=== PATIENT | female | born 2000 | race Two or more races ===

== ENCOUNTER 2022-03-04 11:56 | Emergency (ER) | payer MEDICAID, OTHER ==
[~2022-03-04] VITALS: Ht 170.2 cm; Wt 100.0 kg
[2022-03-04 12:16] VITALS: BP 142/92
[2022-03-04] MEDS ORDERED: cefTRIAXone SOD 1,000 MG VL IM ONE (12:45)
[2022-03-04] MEDS ORDERED: methylPREDNISolone SOD SUCC 125 MG/2 ML VL IM ONE (12:45)
[2022-03-04] MEDS ORDERED: IBUP800T27 PO (13:18)
[2022-03-04] MEDS ORDERED: AZIT500T66 PO (13:18)
[2022-03-04] MEDS ORDERED: ALBU108A5 IN (13:18)
== END 2022-03-04 13:23 | disposition home or self-care (01) ==
LOC: ER 11:56
DX: J03.90 Acute tonsillitis, unspecified (principal); J45.909 Unspecified asthma, uncomplicated; Z76.0 Encounter for issue of repeat prescription
CPT/HCPCS: 71045; 96372; 99284; J0696; J2930

== ENCOUNTER 2022-04-23 14:06 | Emergency (ER) | payer MEDICAID, OTHER ==
[~2022-04-23] VITALS: Ht 170.2 cm; Wt 106.7 kg
[~2022-04-23 14:06] MED LIST: ALBU108A5 IN; AZIT500T66 PO; IBUP800T27 PO
[2022-04-23] MEDS ORDERED: IBUPROFEN 800 MG TAB PO ONE (15:30)
[2022-04-23] MEDS ORDERED: METH500T22 PO (15:47)
[2022-04-23] MEDS ORDERED: IBUP800T27 PO (15:47)
[2022-04-23 16:30] VITALS: BP 126/77
== END 2022-04-23 16:31 | disposition home or self-care (01) ==
LOC: ER 14:06
DX: S16.1XXA Strain of muscle, fascia and tendon at neck level, initial encounter (principal); J45.909 Unspecified asthma, uncomplicated; F12.90 Cannabis use, unspecified, uncomplicated; Z79.899 Other long term (current) drug therapy; V49.9XXA Car occupant (driver) (passenger) injured in unspecified traffic accident, initial encounter; Y93.89 Activity, other specified; Y92.488 Other paved roadways as the place of occurrence of the external cause; Y99.8 Other external cause status
CPT/HCPCS: 70450; 72040

== ENCOUNTER 2023-12-05 13:59 | Emergency (ER) | payer MEDICAID, OTHER ==
[~2023-12-05] VITALS: Ht 170.2 cm; Wt 111.6 kg
[~2023-12-05 13:59] MED LIST changes: +IBUP-1456 PO; -IBUP800T27 PO; +METH-1181 PO
[2023-12-05 15:15] VITALS: PULSE 80; RESP 18; O2SAT 97
[2023-12-05 15:18] VITALS: BP 114/78; PULSE 87; RESP 16; TEMP 97.9; O2SAT 97
[2023-12-05] MEDS: MECLIZINE HCL 25 MG TAB PO ONE (15:20)
[2023-12-05 15:29] LABS: Urine Bacteria None Seen /hpf (None Seen)
[2023-12-05 15:43] LABS: Urine Blood Negative /uL (Negative); Urine Clarity Clear (Clear); Urine Color Light-Yellow (Yellow); Urine Mucus FEW (None Seen); Urine Protein, UAD Negative (Negative); Urine Specific Gravity 1.017 (1.001-1.035); Urine Urobilinogen Normal (Negative); Urine WBC <1 /hpf (0 - 5); Urine pH 6.5 (5.0-9.0)
[2023-12-05] MEDS ORDERED: MECL25CH85 PO (15:45)
== END 2023-12-05 15:59 | disposition home or self-care (01) ==
LOC: ER 13:59
DX: R42 Dizziness and giddiness (principal); J45.909 Unspecified asthma, uncomplicated; Z79.899 Other long term (current) drug therapy; Z79.1 Long term (current) use of non-steroidal anti-inflammatories (NSAID); F12.90 Cannabis use, unspecified, uncomplicated
CPT/HCPCS: 81001; 81025; 99283; J8597